=== PATIENT | female | born 1965 | race Hispanic/Latino ===

== ENCOUNTER 2017-04-28 14:57 | Outpatient (CLI) | payer OTHER ==
--- NOTE | 2017-04-28 18:45 | RAD ---
No fracture, dislocation, or soft tissue swelling was seen. The C1 to dens distance is normal and th e disc spaces are normal in height. Arthritic changes are minimal. IMPRESSION: No significant finding. POS: HOME
== END 2017-04-28 14:58 | disposition home or self-care (01) ==
LOC: BURRAD 14:57
PROVIDERS: ATTEND Family Medicine
DX: M54.12 Radiculopathy, cervical region (principal)
CPT/HCPCS: 72040